=== PATIENT | female | born 1990 | race Caucasian/White ===

== ENCOUNTER 2022-10-31 11:11 | Outpatient (REF) | payer OTHER, BC, SELFPAY ==
--- NOTE | ~2022-10-31 | XR_ITS ---
EXAMINATION: XR hand wrist LT, XR hand wrist RT CLINICAL INFORMATION: Rheumatoid arthritis COMPARISON: None TECHNIQUE: 4 views of each hand/wrist FINDINGS: No fracture or dislocation. Joint spaces are maintained. Single periarticular cortical erosion in the right fifth metacarpal head. Soft tissues are unremarkable. XR/XR hand wrist LT IMPRESSION: Single periarticular cortical erosion in the right fifth metacarpal head, which can be seen in the setting of rheumatoid arthritis or other erosive arthropathy.
--- NOTE | ~2022-10-31 | XR_ITS ---
EXAMINATION: XR hand wrist LT, XR hand wrist RT CLINICAL INFORMATION: Rheumatoid arthritis COMPARISON: None TECHNIQUE: 4 views of each hand/wrist FINDINGS: No fracture or dislocation. Joint spaces are maintained. Single periarticular cortical erosion in the right fifth metacarpal head. Soft tissues are unremarkable. XR/XR hand wrist RT IMPRESSION: Single periarticular cortical erosion in the right fifth metacarpal head, which can be seen in the setting of rheumatoid arthritis or other erosive arthropathy.
[2022-10-31 12:31] LABS: MANUAL DIFF FLAG NO
[2022-10-31 12:58] LABS: Basophils Percent Auto 0.4 % (0-2); Eosinophils Percent Auto 0.8 % (0-4); Hematocrit 38.7 % (37.0-47.0); Hemoglobin 12.5 g/dl (12.0-16.0); Imm Gran Abs Auto 0.02 X10*3/uL (0.00-0.03); Imm Gran Pct Auto 0.4 % (0.0-0.4); Lymphocytes Percent Auto 20.8 % (20-40); Mean Corpuscular HGB Conc 32.3 g/dl (31.0-35.0); Mean Corpuscular Hemoglobin 30.2 pg (27.0-33.0); Mean Corpuscular Volume 93.5 fL (80.0-98.0); Mean Platelet Volume 9.7 fL (9.4-12.3); Monocytes Absolute Auto 0.4 X10*3/uL (0.1-1.2); Monocytes Percent Auto 9.2 % (2-11); Neutrophils Absolute Auto 3.3 x10*3/uL (2.0-8.3); Neutrophils Percent Auto 68.4 % (45-73); Platelet Count 335 X10*3/uL (160-400); Red Blood Count 4.14 X10*6/uL (4.20-5.50); Red Cell Distribution Width 12.7 % (11.0-16.0); White Blood Count 4.8 X10*3/uL (4.8-10.8)
[2022-10-31 13:30] LABS: Alanine Aminotransferase 13 U/L (0-31); Albumin Level 4.7 g/dL (3.5-5.0); Alkaline Phosphatase 49 U/L (39-117); Anion Gap 13 (12-20); Aspartate Amino Transferase 18 U/L (5-31); Bilirubin Total 0.8 mg/dL (0.0-1.0); Blood Urea Nitrogen 17 mg/dL (9-16); C Reactive Protein < 0.04 mg/dL (< or = 0.50); Calcium 9.4 mg/dL (8.4-10.2); Carbon Dioxide 26 mmol/L (22-29); Chloride 105 mmol/L (96-108); Creatinine Clr Calc Pharmacy 125.5; Estimated Glomerular Filt Rate > 60; Glucose Random 80 mg/dL (60-115); Potassium 4.3 mmol/L (3.3-5.1); Rheumatoid Factor < 13.0 IU/mL (<15.0); Sodium 140 mmol/L (135-145); Total Protein 7.3 g/dL (6.5-8.0)
[2022-10-31 13:40] LABS: Erythrocyte Sedimentation Rate 5 MM/HR (0-20)
[2022-10-31 13:45] LABS: TSH reflex Free T4 1.92 uIU/mL (0.32-4.0)
[2022-10-31 14:41] LABS: Appearance Urine Turbid; Color Urine Yellow; Glucose Urine UA Negative (Negative); Leukocyte Esterase Urine Negative (Negative); Nitrite Urine Negative (Negative); PH 5.5 (5.0-9.0); Specific Gravity - Urine 1.025 (1.005-1.025); Urine Blood Negative (Negative); Urine Ketones 15 mg/dL (Negative); Urine Protein Negative (Neg-Trace)
[2022-10-31 15:55] LABS: Creatinine Urine 144.81 mg/dL; Total Protein Urine Random < 7 mg/dL (<12)
[2022-10-31 21:40] LABS: Bacteria Urine 1+ (None Seen); Hyaline Casts Urine 0-2 /LPF (0-2); Other Crystals Urine Present; RBC Urine 0-2 /HPF (0-2); Squamous Epithelial Cell Urine 0-2 /HPF (0-2); WBC Urine 0-5 /HPF (0-5)
[2022-11-01 10:22] LABS: HBS Num1 > 1000.00 mIU/mL (0-7.99); HBc Num1 0.07 S/CO (0.00-0.79); HBsAGNum1 0.42 S/CO (0.00-0.99); Hepatitis A Antibody IgM 0.14 Index (0-0.79); Hepatitis B Core Antibody Nonreactive (Nonreactive); Hepatitis B Surface Antigen Negative (Negative); ~HepC Num1 0.13 S/CO (0.00-0.79); ~Hepatitis A Antibody IgM Nonreactive (Nonreactive); ~Hepatitis B Surface Antibody REACTIVE (Nonreactive); ~Hepatitis C Antibody Nonreactive (Nonreactive)
[2022-11-01 22:23] LABS: Thyroglobulin Antibodies <1 IU/mL (< or = 1); Thyroid Peroxidase Antibodies 216 IU/mL (<9)
[2022-11-02 10:19] LABS: Complement C3 101 mg/dL (83-193)
[2022-11-02 15:09] LABS: TS Negative Control Passed; TS Panel A 2; TS Panel B 0; TS Positive Control Passed; TSpotTB Negative (Negative)
[2022-11-02 22:59] LABS: PTT (LAC) Screen 35 sec (<=40)
== END 2022-10-31 11:12 | disposition home or self-care (01) ==
LOC: HO.XRAY 11:11
PROVIDERS: Visit Provider Student in an Organized Health Care Education/Training Program
DX: Z11.59 Encounter for screening for other viral diseases (principal); Z11.7 Encounter for testing for latent tuberculosis infection; M06.9 Rheumatoid arthritis, unspecified; M32.9 Systemic lupus erythematosus, unspecified; M34.9 Systemic sclerosis, unspecified; E06.3 Autoimmune thyroiditis; Z72.89 Other problems related to lifestyle
CPT/HCPCS: 36415; 73110; 73130; 80053; 81001; 82784; 84156; 84182; 84443; 85025; 85597; 85613; 85652; 85730; 86038; 86039; 86140; 86146; 86147; 86160; 86200; 86225; 86235; 86255; 86334; 86376; 86431; 86481; 86704; 86706; 86709; 86800; 86803; 87340; 99202

== ENCOUNTER 2023-04-10 09:21 | Outpatient (AMB) | payer OTHER, BC, SELFPAY ==
[2023-04-10 09:24] VITALS: BP 122/68; PULSE 62; TEMP 36.8; O2SAT 89; BMI 23.5
--- NOTE | 2023-04-10 09:24 | MHC.OFFVIS ---
Intake Vital Signs 04/10/23 09:24 Height 5 ft 7 in Weight 150 lb 2.157 oz BMI 23.5 BP 122/68 Blood Pressure Location Rt brachial Position Sitting Pulse 62 Pulse Source Pulse Oximeter Temp 98.2 F Temp Source Skin Pulse Oximetry (%) 89 L Intake Visit Reasons: polyarthralgia Intake Note: Pt seen today for follow up. 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 She states that yesterday she had an episode of a facial rash as well as rash on her palms. Her co-worker who has lose to order she had a rash and she might have mastocytosis. Initial history: This is a 31-year-old female who presents for evaluation of diffuse pain. Patient states that around 2 years ago she started having diffuse pain. Her helicopter specialist suggested she get tested for celiac disease. She had positive antibodies for celiac disease. However the small bowel biopsy was negative. She was started on gluten free diet with improvement of her overall joint pain. She states that if she gets exposed to gluten she would get an intensely itchy and burning rash that usually appears on her butt crack , it lasts a week and then resolves. Over the last 6 months patient had started to have recurrent joint pain. The pain is in all her joints including her shoulders, hands, fingers, toes, ankles, sacrum. She has morning stiffness of her hands lasting 3 hours. The majority of her pain however is when lying in bed trying to sleep. Does not believe she has any joint swelling. About 2 months ago she was started on low-dose naltrexone which seems to help her overall symptoms. She was also diagnosed with Raynaud's many years ago. States that her hands are always cold. Her hands sometimes turn pale or red but not blue. She never had to go to the emergency room for this in the winter she wears multiple gloves. Denies ever having digital tip ulcers. She also stated that she was diagnosed with hypermobility, when she delivered her child, her hips popped out of their socket. She was referred to PT. She denies any history of DVT/PE [facility] Medical History Hypermobility of joint Candelaria's thyroiditis Low back pain Pain in joint involving pelvic region and thigh PTSD (post-traumatic stress disorder) Hypothyroidism Depression Primary fibromyalgia Cervical pain Celiac disease Premenstrual dysphoric disorder Alcohol dependence Surgical History History of reversal of tubal ligation H/O tubal ligation Family History Maternal Grandmother Hyperthyroidism Sister Hypothyroidism Social History Household Members: Spouse and Children Alcohol intake: current Alcohol intake frequency: other Patient Tobacco Use Status: Never used Tobacco Substance Use Type: Marijuana Current occupational status: employed Current occupation: accupuncture Review of Systems ENT Reports tinnitus GI Reports no additional complaints and Reports nausea Musc Reports arthralgias and Reports stiffness Skin/Breast Reports pruritus and Reports rash Neuro Reports memory loss Psych Reports memory loss Physical Exam Vital Signs: Last Vital Signs Temp 98.2 F 04/10/23 09:24 Pulse 62 04/10/23 09:24 BP 122/68 04/10/23 09:24 Pulse Ox 89 L 04/10/23 09:24 BMI result Body Mass Index 23.5 Const General: cooperative, healthy appearing and comfortable Nutritional Appearance: average body habitus Limitations: no limitations HEENT Head: Yes normocephalic and Yes atraumatic Mouth: moist mucous membranes Resp Effort & Inspection: normal respiratory effort and able to speak in complete sentences Extrem Other: Early Heberden's nodes of both hands which are mildly tender Bilateral 1st CMC joint tenderness Otherwise no swollen or tender joints Bilateral knee crepitus Bilateral cool fingers Normal nailfold capillaroscopy Assessment & Plan Assessment & Plan (1) Bilateral hand pain: Code(s): M79.641 - Pain in right hand; M79.642 - Pain in left hand Plan: This is a 32-year-old female with a past medical history of Candelaria's thyroiditis, celiac disease or presents for evaluation of diffuse joint pain especially of her hands. On exam she has few tender Heberden's nodes. Hand x-rays show report a periarticular erosion in the right 5th metacarpal, per patient she fractured her right 5th MCP a few years ago, I do not believe she has inflammatory arthritis. She has normal inflammatory markers and comprehensive serology is negative. Follow-up as needed (2) Raynaud phenomenon: Code(s): I73.00 - Raynaud's syndrome without gangrene Qualifiers: Raynaud?s-associated gangrene presence: without gangrene Qualified Code(s): I73.00 - Raynaud's syndrome without gangrene Plan: Primary Raynaud's. No features of secondary Raynaud's. Comprehensive serology for scleroderma is negative Discussed conservative measures for Raynaud's. Advised patient to return to clinic as needed Plan I spent 16 minutes reviewing patient's chart, evaluating patient, counseling patient and documenting in the chart Coding Level of Care Code Est Pt Level 3 (45892) Diagnoses Bilateral hand pain M79.641; M79.642 Raynaud's phenomenon without gangrene I73.00 Raynaud?s-associated gangrene presence: without gangrene
== END 2023-04-10 10:23 | disposition home or self-care (01) ==
PROVIDERS: Visit Provider Student in an Organized Health Care Education/Training Program
DX: M79.641 Pain in right hand (principal); M79.642 Pain in left hand; I73.00 Raynaud's syndrome without gangrene
CPT/HCPCS: 99213

== ENCOUNTER → 2023-04-10 09:21 | Outpatient (BNVA) | payer OTHER, SELFPAY | PROVIDERS: Visit Provider Student in an Organized Health Care Education/Training Program | DX: M79.641 Pain in right hand (principal); M79.642 Pain in left hand; I73.00 Raynaud's syndrome without gangrene | CPT/HCPCS: 99212 ==